=== PATIENT | male | born 2005 | race Caucasian/White ===

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

== ENCOUNTER 2025-10-02 01:23 | Emergency (ER) | payer OTHER ==
[~2025-10-02] VITALS: Ht 180.3 cm; Wt 93.2 kg
[~2025-10-02 01:23] MED LIST changes: +ACET-2080 PO; +IBUP-1554 PO
[2025-10-02 01:25] VITALS: BP 120/72; PULSE 69; RESP 16; TEMP 97.7; O2SAT 96
[2025-10-02] MEDS: ACETAMINOPHEN 500 MG TABLET PO ONE (02:39)
[2025-10-02] MEDS: BACITRACIN 0.9 GM PACKET OINTMENT TP ONE (02:39)
[2025-10-02] MEDS: SULFAMETHOX/TRIMETH DS 800-160 MG/TABLET PO ONE (02:39)
[2025-10-02] MEDS: LIDOCAINE 1% 10 ML VIAL SQ ONE (02:39)
[2025-10-02] MEDS: CEPHALEXIN MONOHYDRATE 500 MG CAPSULE PO ONE (02:39)
[2025-10-02] MEDS ORDERED: SULF1TAB94 PO (02:48)
[2025-10-02] MEDS ORDERED: CEPH-558 PO (02:48)
== END 2025-10-02 03:10 | disposition home or self-care (01) ==
LOC: EMS 01:23
DX: L60.0 Ingrowing nail (principal); L03.032 Cellulitis of left toe; Z79.899 Other long term (current) drug therapy
CPT/HCPCS: 99284; 10060; J3490